=== PATIENT | male | born 1955 | race Caucasian/White ===

== ENCOUNTER → 2018-11-17 | Day surgery (SDC) | payer MEDICARE ==
--- NOTE | 2018-11-15 11:36 | Diagnostic Imaging Report ---
EXAMINATION: CHEST 2 VIEWS INDICATION: Pre-admit COMPARISON: None FINDINGS: TUBES and LINES: None. LUNGS: Lungs are well inflated. There is no evidence of pneumonia or pulmonary edema. Linear subsegmental atelectasis in the right lung base. PLEURA: No pleural effusion or pneumothorax. HEART AND MEDIASTINUM: The cardiomediastinal silhouette is unremarkable. Atherosclerotic calcifications of the aortic arch. BONES AND SOFT TISSUES: No acute osseous lesion. Soft tissues are unremarkable. UPPER ABDOMEN: No free air under the diaphragm. IMPRESSION: No acute radiographic abnormality. Signed by: Dr. Edilberto Lyman MD on 11/15/2018 11:33 AM
--- NOTE | 2018-11-15 11:40 | Diagnostic Imaging Report ---
Exam: KUB-2 views Clinical History: Pre-admit. Comparison: None. Findings: Portions of the bilateral abdomen are excluded from the mayoq-ah-pgyp. Nonobstructive bowel gas pattern. There is a 1.1 x 0.5 cm calcification overlying the right lower pole kidney. There is a cluster of calcifications measuring up to 8 mm in aggregate overlying the left lower pole kidney. No evidence of calcification overlying the expected location of the ureters. There is a 1.0 cm right pelvic calcification. No acute osseous abnormality. Impression: A 1.1 cm right lower pole renal stone. Suspected 8 mm cluster of left lower pole renal stones. A 1 cm right pelvic calcification could represent a bladder stone or phlebolith. Signed by: Dr. Edilberto Lyman MD on 11/15/2018 11:37 AM
[~2018-11-17] MED LIST: ACETAMINOPHEN 1000 MG/100 ML IV ONE; ACETAMINOPHEN/CODEINE 300MG - 30MG TAB ONE; AMLODIPINE BESY10 MG PO; ASPIR 8181 MG PO; CEFTRIAXONE SOD 1 GM/NS 50 ML 50 ML IV ONE; DEXAMETHASONE SOD PHOS INJ 4 MG/ML VIAL ONE; DOXYCYCLINE HY100 MG PO; FENTANYL CITRATE/PF 100MCG/2 ML INJ ONE; GABAPENTIN300 MG PO; GEMFIBROZIL600 MG PO; IOPAMIDOL 610MG/1ML 300 MG/ML VIAL IV ONE; LIDOCAINE HCL 2% LOCAL INJ 5 ML SDV VIAL INJ ONE; MEXILETINE HCL150 MG PO; MICARDIS40 MG PO; MIDAZOLAM HCL 2 MG/2 ML VIAL ONE; MODAFINIL200 MG PO; OMEGA 3 1,0001 EACH PO; ONDANSETRON HCL INJ 2MG/ML 2ML 2 MG/ML VIAL ONE; PAROXETINE HCL20 MG PO; PRAVASTATIN SOD40 MG PO; PROPOFOL IV EMULSION 10 MG/ML 20 ML VIAL ONE; SEVOFLURANE INHAL SOLN 250 ML PEN BTL ONE; ULORIC80 MG PO; [UNRECOGNIZED DRUG - OTHER] PO; [UNRECOGNIZED DRUG - OTHER] PO
--- OUTSIDE RECORDS SUMMARY | 2018-11-17 07:28 | XMS REPORT | Clinical Summary ---
Author Author [facility] Address Unknown Phone Unavailable Care Team Providers Care Wastewater Treatment Operator Name Role Phone Christa Todd MD PCP Allergies No Known Allergies Medications End Date Status Medication Sig Dispensed Refills Start Date Active amLODIPine (NORVASC) 10 Take 10 mg by 0 mg tablet mouth daily. 9 Active doxycycline (VIBRAMYCIN) Take 100 mg 0 100 MG capsule by mouth 9 daily. Active ULORIC 80 mg tablet Take 80 mg by 0 mouth daily. 9 Active gemfibrozil (LOPID) 600 Take 600 mg 0 MG tablet by mouth 9 daily. Active methylphenidate HCl Take 10 mg by 0 (RITALIN) 10 MG tablet mouth daily. 9 Active mexiletine (MEXITIL) 150 Take 150 mg 0 MG capsule by mouth 2 9 (two) times a day. Active omega-3 acid ethyl esters Take 2 g by 3 (LOVAZA) 1 gram capsule mouth 2 (two) 8 times a day. Active omeprazole (PriLOSEC) 40 Take 40 mg by 0 MG capsule mouth daily. 9 Active pravastatin (PRAVACHOL) Take 40 mg by 1 40 MG tablet mouth daily. 9 Active telmisartan (MICARDIS) 40 Take 40 mg by 0 MG tablet mouth daily. 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 Telephone Neurology Marianela Mercado MD 10/16/2018 Telephone Neurology Marianela Mercado MD 10/14/2018 Orders Only Neurology Marianela Mercado MD Paramyotonia congenita (Primary Dx); Idiopathic progressive neuropathy; At high risk for falls 10/13/2018 Office Visit Neurology Marianela Mercado MD 10/06/2018 Telephone Neurology Marianela Mercado MD 10/05/2018 Telephone Neurology after 11/16/2017 Family History Medical History Relation Name Comments Other Daughter Paramyotonia congentia Other Daughter Paramyotonia congentia Other Grandchild Paramyotonia congentia Breast cancer Mother Heart attack Mother Other Son Paramyotonia congentia Relation Name Status Comments Daughter Daughter Grandchild Mother Son Social History Date Tobacco Use Types Packs/Day Years Used Never Smoker Smokeless Tobacco: Never Used Alcohol Use Drinks/Week oz/Week Comments No Alcohol Habits Answer Date Recorded How often do you have a drink containing alcohol? Never 10/13/2018 How many drinks containing alcohol do you have on Not asked a typical day when you are drinking? How often do you have six or more drinks on one Not asked occasion? Sex Assigned at Date Recorded Not on file Industry Job Start Date Occupation Not on file Not on file Not on file Travel End Travel History Travel Start No recent travel history available. Last Filed Vital Signs Time Taken Vital Sign Reading 10/13/2018 1:08 PM ONCOLOGY SOCIAL WORKER Blood Pressure 142/94 10/13/2018 1:08 PM ONCOLOGY SOCIAL WORKER Pulse 102 - Temperature - - Respiratory Rate - - Oxygen Saturation - - Inhaled Oxygen - Concentration 10/13/2018 1:08 PM ONCOLOGY SOCIAL WORKER Weight 126 kg (278 lb 8 oz) 10/13/2018 1:08 PM ONCOLOGY SOCIAL WORKER Height 190.5 cm (6' 3") 10/13/2018 1:08 PM ONCOLOGY SOCIAL WORKER Body Mass Index 34.81 Plan of Treatment Care Team Description Date Type Specialty Walter Canela MD [address] [facility] [address] [place] [address] 04/06/2019 Office Visit Neurology Health Maintenance Due Date Last Done Comments COLON CANCER SCREENING 2003 SHINGLES VACCINES (#1) 2003 INFLUENZA VACCINE 04/19/2018 65+ PNEUMOCOCCAL VACCINE 2018 (1 of 2 - PCV13) PNEUMOCOCCAL 2018 POLYSACCHARIDE VACCINE AGE 65 AND OVER Procedures Comments Procedure Name Priority Date/Time Associated Diagnosis VITAMIN B12 AND FOLATE Routine 10/14/2018 8:51 AM ONCOLOGY SOCIAL WORKER THYROID STIMULATING Routine 10/14/2018 HORMONE 8:51 AM ONCOLOGY SOCIAL WORKER T4, FREE Routine 10/14/2018 8:51 AM ONCOLOGY SOCIAL WORKER SSA/SSB ANTIBODY Routine 10/14/2018 8:51 AM ONCOLOGY SOCIAL WORKER KKAPPA/LAMBDA LIGHT Routine 10/14/2018 CHAINS, FREE WITH RATIO 8:51 AM ONCOLOGY SOCIAL WORKER AND REFLEX TO IMMUNOFIXAT CRYOGLOBULIN SCREEN WITH Routine 10/14/2018 REFLEX TO CRYOGLOBULIN 8:51 AM ONCOLOGY SOCIAL WORKER PROFILE METHYLMALONIC ACID, SERUM Routine 10/14/2018 8:51 AM ONCOLOGY SOCIAL WORKER INTERPRETATION (REFLEX Routine 10/14/2018 [facility]) 8:51 AM ONCOLOGY SOCIAL WORKER RQEZ RNA POLYMERASE III Routine 10/14/2018 (NOT ORDERABLE) 8:51 AM ONCOLOGY SOCIAL WORKER CENTROMERE B ANTIBODY Routine 10/14/2018 (NOT ORDERABLE) 8:51 AM ONCOLOGY SOCIAL WORKER SCL-70 ANTIBODY Routine 10/14/2018 8:51 AM ONCOLOGY SOCIAL WORKER ANTINUCLEAR ANTIBODIES Routine 10/14/2018 TITER AND PATTERN 8:51 AM ONCOLOGY SOCIAL WORKER HUSSEIN SCREEN, IFA (NOT Routine 10/14/2018 ORDERABLE) 8:51 AM ONCOLOGY SOCIAL WORKER SERUM ELECTROPHORESIS Routine 10/14/2018 8:51 AM ONCOLOGY SOCIAL WORKER after 11/16/2017 Results * RQEZ RNA POLYMERASE III (NOT ORDERABLE) (10/14/2018 8:51 AM ONCOLOGY SOCIAL WORKER) RNA polymerase III TNP Units [facility] Comment: DIAGNOSTICS/CHEN Test Not Performed. Reflex SJC testing not required. Narrative Performed At FASTING:NO [facility] FASTING: NO Resulting Agency Comment Performing Organization Information: Site ID: [id number] Name: [facility], Address: [address] [place] [phone] Director: Nicole Richmond MD,PhD,PILLO Performing Organization Address [facility] Phone Number [facility] [employer] [phone] [place] [address] [facility] [phone] * Cryoglobulin Screen with Reflex to Cryoglobulin Profile (10/14/2018 8:51 AM ONCOLOGY SOCIAL WORKER) Cryoglobulin NEGATIVE [facility] Comment: Michael Bieker/[employer] [facility] Reference Range: NEGATIVE IN NORMAL INDIVIDUAL S This test was developed and its analytical performance characteristics have been determined by [facility]. It has not been cleared or approved by FDA. This assay has been validated pursuant to the CLIA regulations and is used for clinical purposes. Narrative Performed At FASTING:NO [facility] FASTING: NO Resulting Agency Comment Performing Organization Information: Site ID: [id number] Name: [facility], Address: [address] [place] [phone] Director: Nicole Richmond MD,PhD,PILLO Performing Organization Address [facility] Phone Number [facility]/CHEN [phone] [place] [address] [facility] [id number] * INTERPRETATION (REFLEX [facility]) (10/14/2018 8:51 AM ONCOLOGY SOCIAL WORKER) Interpretation SEE NOTE [facility] Comment: Michael Bieker[facility] HUSSEIN by IFA on HEp-2 cell [facility] substrate was negative for nuclear and cytoplasmic autoantibodies. About 5% or more of systemic sclerosis patients have a negative HUSSEIN IFA (Brian and Eleazarille. Arthritis Res Ther 2003;5:80-93; Orozco et al. Kaykay Arthritis Rheum 2015;44:680-686). If clinical suspicion for systemic sclerosis and/or systemic sclerosis overlap syndromes remains, consider testing for analyte specific autoantibodies known to be associated with systemic sclerosis and/or interstitial lung disease, for example, PM-Gbj393, PM-Scl75, CENP A, CENP B, RNA Polymerase III subunit RP11, RNA Polymerase III subunit RP155, U1-snRNP SENIOR ART DIRECTOR A, U1-snRNP SENIOR ART DIRECTOR C, U1-snRNP SENIOR ART DIRECTOR 70kd, U3-snRNP (fibrillarin), Th/To, and/or Scl-70 antibodies. Narrative Performed At FASTING:NO [facility] FASTING: NO Resulting Agency Comment Performing Organization Information: Site ID: EZ Name: [facility], Address: [address] [place] [phone] Director: Nicole Richmond MD,PhD,PILLO Performing Organization Address [facility] Phone Number [facility]NOSTICS/CHEN [address] [place] [address] [facility] [phone] * CENTROMERE B ANTIBODY (10/14/2018 8:51 AM ONCOLOGY SOCIAL WORKER) Centromere antibody TNP AI [facility] Comment: DIAGNOSTICS/CHEN Test Not Performed. Reflex SJC testing not required. Narrative Performed At FASTING:NO [facility] FASTING: NO Resulting Agency Comment Performing Organization Information: Site ID: EZ Name: [facility], Address: [address] [place] [phone] Director: Nicole Richmond MD,PhD,PILLO Performing Organization Address [facility] Phone Number [facility]/CHEN [address] [place] [address] [facility] [address] * Scl-70 antibody (10/14/2018 8:51 AM ONCOLOGY SOCIAL WORKER) Scleroderma SCL-70 Ab TNP AI [facility] Comment: DIAGNOSTICS/CHEN Test Not Performed. Reflex SJC testing not required. Narrative Performed At FASTING:NO [facility] FASTING: NO Resulting Agency Comment Performing Organization Information: Site ID: EZ Name: [facility], Address: [address] [place] [phone] Director: Nicole Richmond MD,PhD,PILLO Performing Organization Address [facility] Phone Number [facility]/CHEN [address] [place] [address] [facility] [address] * HUSSEIN SCREEN, IFA (10/14/2018 8:51 AM ONCOLOGY SOCIAL WORKER) HUSSEIN screen NEGATIVE NEGATIVE [employer] Comment: Conductor HUSSEIN IFA is a first line screen [facility] for detecting the presence of up to approximately 150 autoantibodies in various autoimmune diseases. A negative HUSSEIN IFA result suggests HUSSEIN-associated autoimmune diseases are not present at this time. Visit Physician FAQs for interpretation of all antibodies in the [place], prevalence, and association with diseases at http://education.WeHack.It/faq/HLP581 Narrative Performed At FASTING:NO [facility] FASTING: NO Resulting Agency Comment Performing Organization Information: Site ID: EZ Name: [facility], Address: [address] [place] [phone] Director: Nicole Richmond MD,PhD,PILLO Performing Organization Address City/State/Zipcode Phone Number [facility] [address] [place] [address] [facility] [address] * Momeyer/Lambda Light Chains, Free with Ratio and Reflex to Immunofixation (10/14/2018 8:51 AM ONCOLOGY SOCIAL WORKER) Momeyer light chain 26.2 (H) 3.3 - 19.4 mg/L [facility] II Lambda light chain 21.3 5.7 - 26.3 mg/L [facility] II Momeyer lambda ratio 1.23 0.26 - 1.65 [facility] Comment: DIAGNOSTICS-[facility] Free kappa/lambda ratio in II serum of normal individuals is 0.26-1.65. Excess production of free kappa or lambda chains can alter this ratio. Monoclonal free light chains are found in serum of patients with multiple myeloma, Waldenstrom's macroglobulinemia, mu-heavy chain disease, primary amyloidosis, light chain deposition disease, monoclonal gammopathy of undetermined significance, and lymphoproliferative disorders. Measurement of free light chain concentration in serum is useful for diagnosis, prognosis, monitoring disease activity and following response to therapy of these disorders. Narrative Performed At FASTING:NO [facility] FASTING: NO Resulting Agency Comment Performing Organization Information: Site ID: [id number] Name: [facility] Address: [address] [place] [phone] Director: Dr. Walter Gorman Performing Organization Address [facility] Centercode Phone Number [facility] [address] [place] [address] II * Vitamin B12 and Folate (10/14/2018 8:51 AM ONCOLOGY SOCIAL WORKER) Vitamin B12 598 200 - 1,100 pg/mL [employer] [facility] Folate 14.2 ng/mL [employer] Comment: [facility] Reference Range Low: <3.4 Borderline:3.4-5.4 Normal:>5.4 Narrative Performed At FASTING:NO [facility] FASTING: NO Resulting Agency Comment Performing Organization Information: Site ID: RGA Name: [facility] Address: [address] [place] [id number] Director: More Del Cid Performing Organization Address [facility] Phone Number [facility] [address] [place] [address] * ANTINUCLEAR ANTIBODIES TITER AND PATTERN (10/14/2018 8:51 AM ONCOLOGY SOCIAL WORKER) HUSSEIN pattern TNP [facility] Comment: DIAGNOSTICS/CHEN Test Not Performed. Reflex SJC testing not required. Reference Ranges for Anti-Nuclear Ab Titer: <1:40Negative 1:40-1:80Low Antibody Level >1:80Elevated Antibody Level Test Not Performed. Reflex testing not required. Narrative Performed At FASTING:NO [facility] FASTING: NO Resulting Agency Comment Performing Organization Information: Site ID: EZ Name: [facility], Address: [address] [place] [phone] Director: Nicole Richmond MD,PhD,PILLO Performing Organization Address [facility] Centercode Phone Number [facility]/CHEN [address] [place] [address] [facility] [address] * SSA/SSB antibody (10/14/2018 8:51 AM ONCOLOGY SOCIAL WORKER) Sjogren's SS-A antibody <1.0 NEG <1.0 NEG AI [employer] II Sjogren's SS-B antibody <1.0 NEG <1.0 NEG AI [employer] [facility] II Narrative Performed At FASTING:NO [facility] FASTING: NO Resulting Agency Comment Performing Organization Information: Site ID: IG Name: [facility] Address: [address] [place] [address] Director: Dr. Walter Gorman Performing Organization Address City/[facility] Cent[facility] Phone Number [facility] [address] [facility] [place] [address] II * Methylmalonic acid, serum (10/14/2018 8:51 AM ONCOLOGY SOCIAL WORKER) Methylmalonic acid 108 87 - 318 nmol/L [facility] Comment: Michael Bieker/[employer] This test was developed and [facility] its analytical performance characteristics have been determined by [facility]. It has not been cleared or approved by FDA. This assay has been validated pursuant to the CLIA regulations and is used for clinical purposes. Narrative Performed At FASTING:NO [facility] FASTING: NO Resulting Agency Comment Performing Organization Information: Site ID: EZ Name: [facility], Address: [address] [place] [phone] Director: Nicole Richmond MD,PhD,PILLO Performing Organization Address [facility] Phone Number [facility] [address] [place] [address] [facility] [address] * Thyroid stimulating hormone (10/14/2018 8:51 AM ONCOLOGY SOCIAL WORKER) TSH 3.61 0.40 - 4.50 mIU/L [employer] [facility] Narrative Performed At FASTING:NO [facility] FASTING: NO Resulting Agency Comment Performing Organization Information: Site ID: RGA Name: [facility] Address: [address] [place] [phone] Director: More Del Cid Performing Organization Address [facility] Phone Number [facility] [address] [address] * T4, free (10/14/2018 8:51 AM ONCOLOGY SOCIAL WORKER) T4, free 1.4 0.8 - 1.8 ng/dL [employer] [facility] Narrative Performed At FASTING:NO [facility] FASTING: NO Resulting Agency Comment Performing Organization Information: Site ID: RGA Name: [facility] Address: [address] [place] [address] Director: More Del Cid Performing Organization Address City/[facility] Centercode Phone Number [facility] [address] [place] [address] * Serum electrophoresis (10/14/2018 8:51 AM ONCOLOGY SOCIAL WORKER) Protein 7.2 6.1 - 8.1 g/dL [facility] II Albumin, S 4.7 3.8 - 4.8 g/dL [facility] II Qhing-6-ospyvvie 0.3 0.2 - 0.3 g/dL [facility] II Eflxo-1-fknzdqcg 0.6 0.5 - 0.9 g/dL [facility] II Beta-1 globulin 0.4 0.4 - 0.6 g/dL [facility] II Beta-2 globulin 0.3 0.2 - 0.5 g/dL [facility] II Gamma, CSF 0.9 0.8 - 1.7 g/dL [facility] II Interpretation Comment: [facility] Normal Electrophoretic Pattern DIAGNOSTICS-[facility] II Narrative Performed At FASTING:NO [facility] FASTING: NO Resulting Agency Comment Performing Organization Information: Site ID: [id number] Name: [facility] Address: [address] [place] [address] Director: Dr. Walter Gorman Performing Organization Address City/[facility] Centercode Phone Number [facility] [address] [place] [address] II after 11/16/2017 Insurance Payer Benefit Subscriber ID Type Phone Address Plan / Group [facility] xxxxxxxx [facility] Advance Directives Patient has advance care planning documents on file. For more information, maría elena wilson contact: rAmen Valencia [address] [place] [address]
--- OUTSIDE RECORDS SUMMARY | 2018-11-17 07:28 | XMS REPORT ---
Author Author [facility] Address Unknown Phone Unavailable Care Team Providers Care Waiter/Waitress Tourist Class Name Role Phone HINA ELAM Unavailable Unavailable Problems This patient has no known problems. Allergies, Adverse Reactions, Alerts This patient has no known allergies or adverse reactions. Medications This patient has no known medications. Results Test Description Test Time Test Comments Text Results Atomic Results Result Comments ABDOMEN-1VIEW (KUB) 2018-11-15 11:33:00 [place] [address] Patient Name: CONG MICHAEL MR #: [id number] : 1955 Age/Sex: 63/M Req #: [id number] Adm Physician: Ordered by: HINA ELAM MD Report #: [id number] Location: OR Room/Bed: Procedure: [id number] DX/ABDOMEN-1VIEW (KUB) Exam Date: Exam Time: REPORT STATUS: Signed Exam: KUB-2 views Clinical History: Pre-admit. Comparison: None. Findings: Portions of the bilateral abdomen are excluded from the beugg-zk-vntf. Nonobstructive bowel gas pattern. There is a 1.1 x 0.5 cm calcification overlying the right lower pole kidney. There is a cluster of calcifications measuring up to 8 mm in aggregate overlying the left lower pole kidney. No evidence of calcification overlying the expected location of the ureters. There is a 1.0 cm right pelvic calcification. No acute osseous abnormality. Impression: A 1.1 cm right lower pole renal stone. Suspected 8 mm cluster of left lower pole renal stones. A 1 cm right pelvic calcification could represent a bladder stone or phlebolith. Signed by: Dr. Gurmeet Hickey MD on 11/15/2018 11:37 AM Dictated By: GURMEET HICKEY MD [id number] Transcribed By: LISA on 11/15/18 1137 COPY TO: HINA ELAM MD CHEST 2 VIEWS 2018-11-15 11:31:00 [place] [address] Patient Name: CONG MICHAEL MR #: [id number] : 1955 Age/Sex: 63/M Req #: [id number] Adm Physician: Ordered by: HINA ELAM MD Report #: [id number] Location: OR Room/Bed: Procedure: [id number] DX/CHEST 2 VIEWS Exam Date: Exam Time: REPORT STATUS: Signed EXAMINATION: CHEST 2 VIEWS INDICATION: Pre-admit COMPARISON: None FINDINGS: TUBES and LINES: None. LUNGS: Lungs are well inflated. There is no evidence of pneumonia or pulmonary edema. Linear subsegmental atelectasis in the right lung base. PLEURA: No pleural effusion or pneumothorax. HEART AND MEDIASTINUM: The cardiomediastinal silhouette is unremarkable. Atherosclerotic calcifications of the aortic arch. BONES AND SOFT TISSUES: No acute osseous lesion. Soft tissues are unremarkable. UPPER ABDOMEN: No free air under the diaphragm. IMPRESSION: No acute radiographic abnormality. Signed by: Dr. Gurmeet Hickey MD on 11/15/2018 11:33 AM Dictated By: GURMEET HICKEY MD [id number] Transcribed By: LISA on 11/15/18 1133 COPY TO: HINA ELAM MD
[2018-11-17 11:45] VITALS: BP 123/63
--- NOTE | 2018-11-17 18:59 | Operative Report ---
DATE OF PROCEDURE: 11/17/2018 SURGEON: Cuong Braden MD PREOPERATIVE DIAGNOSES: 1. Right distal ureteral calculus. 2. Right hydronephrosis. POSTOPERATIVE DIAGNOSES: 1. Right distal ureteral calculus. 2. Right hydronephrosis. PROCEDURES: 1. Right ureteroscopy with laser and stent insertion for ureteral calculus. 2. Supervision of fluoroscopy. ANESTHESIA: General. ESTIMATED BLOOD LOSS: Minimal. COMPLICATIONS: None. INDICATIONS: Mr. Milligan is a very pleasant 58-exsv-lbs-male with a history of myotonia and found to have right 8 mm distal ureteral calculus, renal insufficiency, and 1.6 cm right renal calculus and the 9 mm left renal calculus. I had a long discussion with the alternatives, the risks and the benefits with the renal insufficiency. We will first address the ureteral calculi, then present with staged bilateral lithotripsies. This case is extremely completed secondary to the myotonia and inability to give muscle relaxants. We will proceed as we agreed. PROCEDURE IN DETAIL: After informed consent was obtained, the patient was taken to the operative suite. He was placed supine on the operating table. He underwent general anesthesia by the service. He was placed in dorsal lithotomy position. Sterilely prepped and draped in standard fashion for cystoscopy. A 22.5-Swedish cystoscope was inserted per urethra and normal urethra was noted. Ureters were catheterized. Retrograde pyelogram was performed revealing a distal ureteral calculus on the right. Guidewire was inserted proximally. The uteroscope was advanced to level of stone utilizing 365 micron laser fiber. Stone was obliterated. Ureteral stent was placed with coil in the renal pelvis and a coil in the patient's bladder. Bladder was drained. The patient was awakened from anesthesia and transported to the recovery room in excellent condition. Supervision of fluoroscopy, interpretation, retrograde pyelography: I was present for the entire procedure. I supervised the use of fluoroscopy. There was no radiologist present. The right ureter was catheterized and right retrograde pyelogram was performed revealing an 8 x 9 mm distal ureteral calculus of proximal hydronephrosis Post operatively stent in good position. Cuong Braden MD ES/MODL /[id number] MTDD
== END | disposition home or self-care (01) ==
LOC: OR 07:25
PROVIDERS: ATTEND Urology
DX: N20.1 Calculus of ureter (principal); N20.0 Calculus of kidney; N13.30 Unspecified hydronephrosis; M62.89 Other specified disorders of muscle; N28.9 Disorder of kidney and ureter, unspecified; N39.0 Urinary tract infection, site not specified; N28.1 Cyst of kidney, acquired; I10 Essential (primary) hypertension; R06.09 Other forms of dyspnea; Z01.818 Encounter for other preprocedural examination; Z79.82 Long term (current) use of aspirin; Z68.35 Body mass index [BMI] 35.0-35.9, adult
CPT/HCPCS: 52356; 71046; 74018; 74420; C1758; C2617; J0131; J0696; J1100; J2001; J2250; J2405; J2704; Q9967

== ENCOUNTER → 2018-12-06 | Day surgery (SDC) | payer OTHER ==
[~2018-12-06] MED LIST changes: -ACETAMINOPHEN 1000 MG/100 ML IV ONE; -ACETAMINOPHEN/CODEINE 300MG - 30MG TAB ONE
--- OUTSIDE RECORDS SUMMARY | 2018-12-06 06:10 | XMS REPORT | Clinical Summary ---
Author Author [facility] Address Unknown Phone Unavailable Care Team Providers Care Increment Manager Name Role Phone Christa Todd MD PCP [...] Marianela Mercado MD 10/05/2018 Telephone Neurology after 12/05/2017 Family History Medical History Relation Name Comments [...] Taken Vital Sign Reading 10/13/2018 1:08 PM T[facility] Blood Pressure 142/94 10/13/2018 1:08 PM T[facility] Pulse 102 - Temperature - - Respiratory Rate - - Oxygen Saturation - - Inhaled Oxygen - Concentration 10/13/2018 1:08 PM T[facility] Weight 126 kg (278 lb 8 oz) 10/13/2018 1:08 PM T[facility] Height 190.5 cm (6' 3") 10/13/2018 1:08 PM TUR[facility]OWER Body Mass Index 34.81 Plan of Treatment Care Team Description Date Type Specialty Walter Canela MD [address] [facility] [address] [place] [address] 04/06/2019 Office Visit Neurology Health Maintenance Due Date Last Done Comments COLON CANCER SCREENING 2003 SHINGLES VACCINES (#1) 2003 INFLUENZA VACCINE 04/19/2018 65+ PNEUMOCOCCAL VACCINE 2018 (1 of 2 - PCV13) PNEUMOCOCCAL 2018 POLYSACCHARIDE VACCINE AGE 65 AND OVER Procedures Comments Procedure Name Priority Date/Time Associated Diagnosis VITAMIN B12 AND FOLATE Routine 10/14/2018 8:51 AM [facility] THYROID STIMULATING Routine 10/14/2018 HORMONE 8:51 AM [facility] T4, FREE Routine 10/14/2018 8:51 AM [facility] SSA/SSB ANTIBODY Routine 10/14/2018 8:51 AM T[facility]OWER KKAPPA/LAMBDA LIGHT Routine 10/14/2018 CHAINS, FREE WITH RATIO 8:51 AM T[facility] AND REFLEX TO IMMUNOFIXAT CRYOGLOBULIN SCREEN WITH Routine 10/14/2018 REFLEX TO CRYOGLOBULIN 8:51 AM [facility] PROFILE METHYLMALONIC ACID, SERUM Routine 10/14/2018 8:51 AM [facility] INTERPRETATION (REFLEX Routine 10/14/2018 [facility]) 8:51 AM [facility] RQEZ RNA POLYMERASE III Routine 10/14/2018 (NOT ORDERABLE) 8:51 AM T[facility] CENTROMERE B ANTIBODY Routine 10/14/2018 (NOT ORDERABLE) 8:51 AM [facility] SCL-70 ANTIBODY Routine 10/14/2018 8:51 AM [facility] ANTINUCLEAR ANTIBODIES Routine 10/14/2018 TITER AND PATTERN 8:51 AM [facility] HUSSEIN SCREEN, IFA (NOT Routine 10/14/2018 ORDERABLE) 8:51 AM [facility] SERUM ELECTROPHORESIS Routine 10/14/2018 8:51 AM T[facility] after 12/05/2017 Results * RQEZ RNA POLYMERASE III (NOT ORDERABLE) (10/14/2018 8:51 AM T[facility]) RNA polymerase III TNP Units [facility] Comment: DIAGNOSTICS/CHEN Test Not Performed. Reflex SJC testing not required. Narrative Performed At FASTING:NO [facility] FASTING: NO Resulting Agency Comment Performing Organization Information: Site ID: [id number] Name: [employer] [facility], Address: [address] [place] [phone] Director: Nicole Richmond MD,PhD,PILLO Performing Organization Address [facility] Phone Number [facility] [email or web address] [id number] [place] [address] [facility] [address] * Cryoglobulin Screen with Reflex to Cryoglobulin Profile (10/14/2018 8:51 AM TURF GROWER) Cryoglobulin NEGATIVE [facility] Comment: [email or web address] [facility] Reference Range: NEGATIVE IN NORMAL INDIVIDUAL S This test was developed and its analytical performance characteristics have been determined by [employer] [facility]. It has not been cleared or approved by FDA. This assay has been validated pursuant to the CLIA regulations and is used for clinical purposes. Narrative Performed At FASTING:NO [facility] FASTING: NO Resulting Agency Comment Performing Organization Information: Site ID: [id number] Name: [employer] [facility], Address: [address] [place] [id number] Director: Nicole Richmond MD,PhD,PILLO Performing Organization Address [facility] Phone Number [employer]CHEN [id number] [place] [address] [facility] [address] * INTERPRETATION (REFLEX [facility]) (10/14/2018 8:51 AM TURF GROWER) Interpretation SEE NOTE [facility] Comment: [email or web address] HUSSEIN by IFA on HEp-2 cell [facility] substrate was negative for nuclear and cytoplasmic [...] sclerosis and/or interstitial lung disease, for example, PM-Icl411, PM-Scl75, CENP A, CENP B, RNA Polymerase III subunit RP11, RNA Polymerase III subunit RP155, U1-snRNP SALES DEVELOPMENT DIRECTOR A, U1-snRNP SALES DEVELOPMENT DIRECTOR C, U1-snRNP SALES DEVELOPMENT DIRECTOR 70kd, U3-snRNP (fibrillarin), Th/To, and/or Scl-70 antibodies. Narrative Performed At FASTING:NO [facility] FASTING: NO Resulting Agency Comment Performing Organization Information: Site ID: [id number] Name: [employer] [facility], Address: [address] [place] [phone] Director: Nicole Richmond MD,PhD,PILLO Performing Organization Address [facility] [address]/[facility] Phone Number [employer] [facility]/CHEN [address] [place] [address] [facility] [address] * CENTROMERE B ANTIBODY (10/14/2018 8:51 AM TURF [facility]OWER) Centromere antibody TNP AI [facility] Comment: DIAGNOSTICS/CHEN Test Not Performed. Reflex SJC testing not required. Narrative Performed At FASTING:NO [facility] FASTING: NO Resulting Agency Comment Performing Organization Information: Site ID: [id number] Name: [employer] [facility], Address: [address] [place] [phone] Director: Nicole Richmond MD,PhD,PILLO Performing Organization Address [facility] Phone Number [employer] [facility]CHEN [address] [place] [address] [facility] [address] * Scl-70 antibody (10/14/2018 8:51 AM T[facility]) Scleroderma SCL-70 Ab TNP AI [facility] Comment: DIAGNOSTICS/CHEN Test Not Performed. Reflex SJC testing not required. Narrative Performed At FASTING:NO [facility] FASTING: NO Resulting Agency Comment Performing Organization Information: Site ID: EZ Name: [employer] [facility], Address: [address] [place] [address] Director: Nicole Richmond MD,PhD,PILLO Performing Organization Address [facility] [address]/[facility] Phone Number [employer] [address] [place] [address] [facility] [address] * HUSSEIN SCREEN, IFA (10/14/2018 8:51 AM T[facility]) HUSSEIN screen NEGATIVE NEGATIVE [employer] Comment: Vehrity HUSSEIN IFA is a first line screen [facility] for detecting the presence of up to approximately 150 autoantibodies in various autoimmune diseases. A negative HUSSEIN IFA result suggests HUSSEIN-associated autoimmune diseases are not present at this time. Visit Physician FAQs for interpretation of all antibodies in the [place], prevalence, and association with diseases at http://education.[place] [employer]/faq/QSQ669 Narrative Performed At FASTING:NO [facility] FASTING: NO Resulting Agency Comment Performing Organization Information: Site ID: [id number] Name: [employer] [facility], Address: [address] [place] [phone] Director: Nicole Richmond MD,PhD,PILLO Performing Organization Address City/State/Zipcode Phone Number [email or web address] [address] [place] [address] [facility] [address] * [place]/Lambda Light Chains, Free with Ratio and Reflex to Immunofixation (10/14/2018 8:51 AM TUR[facility]OWER) [place] light chain 26.2 (H) 3.3 - 19.4 mg/L [facility] II Lambda light chain 21.3 5.7 - 26.3 mg/L [facility] II [place] lambda ratio 1.23 0.26 - 1.65 [facility] [...] Performing Organization Information: Site ID: IG Name: [facility] Address: [address] [place] [phone] Director: Dr. Walter Gorman Performing Organization Address [facility] [address]/[facility] Phone Number [facility] [address] [place] [address] II * Vitamin B12 and Folate (10/14/2018 8:51 AM TURF [facility]OWER) Vitamin B12 598 200 - 1,100 pg/mL [employer] [facility] Folate 14.2 ng/mL [facility] Comment: [facility] Reference Range Low: <3.4 Borderline:3.4-5.4 Normal:>5.4 Narrative Performed At FASTING:NO [facility] FASTING: NO Resulting Agency Comment Performing Organization Information: Site ID: RGA Name: [facility] Address: [address] [place] [address] Director: More Del Cid Performing Organization Address [facility] Phone Number [employer] [place] [address] [place] [address] * ANTINUCLEAR ANTIBODIES TITER AND PATTERN (10/14/2018 8:51 AM TUR[facility]OWER) HUSSEIN pattern TNP [facility] Comment: DIAGNOSTICS/CHEN Test Not Performed. Reflex SJC testing not required. Reference Ranges for Anti-Nuclear Ab Titer: <1:40Negative 1:40-1:80Low Antibody Level >1:80Elevated Antibody Level Test Not Performed. Reflex testing not required. Narrative Performed At FASTING:NO [facility] FASTING: NO Resulting Agency Comment Performing Organization Information: Site ID: EZ Name: [employer] [facility], Address: [address] [place] [phone] Director: Nicole Richmond MD,PhD,PILLO Performing Organization Address [facility] [address]/[facility] Phone Number [employer] [address] [place] [address] [facility] [address] * SSA/SSB antibody (10/14/2018 8:51 AM TUR[facility]OWER) Sjogren's SS-A antibody <1.0 NEG <1.0 NEG AI [employer] II Sjogren's SS-B antibody <1.0 NEG <1.0 NEG AI [facility] II Narrative Performed At FASTING:NO [facility] FASTING: NO Resulting Agency Comment Performing Organization Information: Site ID: IG Name: [facility] Address: [address] [facility] [place] [address] Director: Dr. Walter Gorman Performing Organization Address City/[facility] [address]/[facility] Phone Number [employer] [facility]OS[facility]ITAL[facility] [address] [place] [address] II * Methylmalonic acid, serum (10/14/2018 8:51 AM TURF [facility]OWER) Methylmalonic acid 108 87 - 318 nmol/L [facility] Comment: [email or web address] This test was developed and [facility] its analytical performance characteristics have been determined by [employer] [facility]. It has not been cleared or approved by FDA. This assay has been validated pursuant to the CLIA regulations and is used for clinical purposes. Narrative Performed At FASTING:NO [facility] FASTING: NO Resulting Agency Comment Performing Organization Information: Site ID: EZ Name: [employer] [facility], Address: [address] [place] [phone] Director: Nicole Richmond MD,PhD,PILLO Performing Organization Address [facility] [address]/[facility] Phone Number [email or web address] [address] [place] [address] [facility] [address] * Thyroid stimulating hormone (10/14/2018 8:51 AM TURF [facility]OWER) TSH 3.61 0.40 - 4.50 mIU/L [facility] [place] Narrative Performed At FASTING:NO [facility] FASTING: NO Resulting Agency Comment Performing Organization Information: Site ID: RGA Name: [facility] Address: [address] [place] [phone] Director: More Del Cid Performing Organization Address [facility] [address]/[facility] Phone Number [employer] [address] [address] * T4, free (10/14/2018 8:51 AM TURF GROWER) T4, free 1.4 0.8 - 1.8 ng/dL [facility] Narrative Performed At FASTING:NO [facility] FASTING: NO Resulting Agency Comment Performing Organization Information: Site ID: RGA Name: [facility] Address: [address] [place] [address] Director: More Del Cid Performing Organization Address City/[facility] [address]/[facility] Phone Number [employer] [place] [address] [place] [address] * Serum electrophoresis (10/14/2018 8:51 AM TURF [facility]OWER) Protein 7.2 6.1 - 8.1 g/dL [facility] Albumin, S 4.7 3.8 - 4.8 g/dL [facility] Smrvn-4-tazkadnr 0.3 0.2 - 0.3 g/dL [facility] Tblxp-1-nowvzzwi 0.6 0.5 - 0.9 g/dL [facility] Beta-1 globulin 0.4 0.4 - 0.6 g/dL [facility] Beta-2 globulin 0.3 0.2 - 0.5 g/dL [facility] Gamma, CSF 0.9 0.8 - 1.7 g/dL [facility] II Interpretation Comment: [facility] Normal Electrophoretic Pattern DIAGNOSTICS-J[facility] II Narrative Performed At FASTING:NO [facility] FASTING: NO Resulting Agency Comment Performing Organization Information: Site ID: IG Name: [facility] Address: [address] [place] [address] Director: Dr. Walter Gorman Performing Organization Address City/[facility] [address]/[facility]code Phone Number [facility] [address] [place] [address] II after 12/05/2017 Insurance Payer Benefit Subscriber ID Type Phone Address Plan / Group [facility] xxxxxxxx O [facility] Advance Directives Patient has advance care planning documents on file. For more information, maría elena wilson contact: Armen Valencia [address] [place] [address]
--- NOTE | 2018-12-06 07:10 | NUR ---
SPIRITUAL CARE - Pre-Surgery Assessment: Pt in bed. Pt's at bedside. Pt reported supportive attention from family and friends. Intervention: I provided pastoral presence, hospitality, and sympathetic listening. I acquainted pt with availability of banjo repairer while hospitalized. Outcome: Pt expressed appreciation for visit. No need for follow up indicated at this time. JUAN Padillalain Spiritual Care Department O: [phone] Pager: [phone] ([phone] number calling from)
[2018-12-06 09:30] VITALS: BP 131/77
--- NOTE | 2018-12-06 11:27 | Operative Report ---
DATE OF PROCEDURE: 12/06/2018 SURGEON: Cuong Braden MD PREOPERATIVE DIAGNOSES: 1. Right kidney stone. 2. Right ureteral stent. 3. Right hydronephrosis. POSTOPERATIVE DIAGNOSES: 1. Right kidney stone. 2. Right ureteral stent. 3. Right hydronephrosis. PROCEDURES: 1. Cystourethroscopy with complicated removal of right indwelling stent (entirely separate procedure) complicated secondary to BPH. 2. Cystourethroscopy with insertion of a right indwelling stent (entirely separate procedure) for right hydronephrosis. 3. Staged right-sided shock wave lithotripsy. 4. Supervision of fluoroscopy. ANESTHESIA: General. ESTIMATED BLOOD LOSS: Minimal. COMPLICATION: None. INDICATIONS: Mr. Milligan is a very pleasant 63-year-old male patient with a history of myotonia, who presents with bilateral large obstructing stones and indwelling stent. He and I had a long discussion about alternatives, risks and benefits of doing nothing, shock wave lithotripsy, ureteroscopy, percutaneous surgery or open surgery. He voiced understanding of the options, the alternatives, the risks and benefits and would like to proceed with stent exchange and right shock wave lithotripsy. PROCEDURE IN DETAIL: After informed consent was obtained, the patient was taken to the operative suite. He was placed supine on the operative table, underwent general anesthesia by the Anesthesia service, placed in dorsal lithotomy position, and sterilely prepped and draped in a standard fashion for cystoscopy. A 22.5-Anguillan cystoscope inserted per urethra. Normal urethra was noted. Stent in right ureteral orifice, this was grasped and removed intact. A guidewire was inserted. Ureteral stent was deployed with coil in the renal pelvis and coil in the bladder. A string was tied at the level of meatus. Bladder was then drained. The patient was placed in supine position. All pressure points were carefully padded and prepped. Attention was turned to the right renal pelvis and the stone was localized in the X, Y and Z planes. A total of 3000 shocks were delivered to the stone The patient tolerated the procedure well, was transferred to recovery room in excellent condition with no untoward effects noted. Supervision of fluoroscopy: I was present for the entire procedure and I supervised fluoroscopy for both the stent removal and exchange portion. There was no radiologist present. Dosage per the treatment report. MD ANGEL Chakraborty/SIMBA /[id number] MTDD
== END | disposition home or self-care (01) ==
LOC: OR 06:07
PROVIDERS: ATTEND Urology
DX: N13.2 Hydronephrosis with renal and ureteral calculous obstruction (principal); N28.1 Cyst of kidney, acquired; N40.1 Benign prostatic hyperplasia with lower urinary tract symptoms; M62.89 Other specified disorders of muscle; Z79.82 Long term (current) use of aspirin
CPT/HCPCS: 50590; 52332; C1758; C2617; J0696; J1100; J2001; J2250; J2405; J2704; Q9967

== ENCOUNTER → 2019-01-02 | Day surgery (SDC) | payer OTHER ==
[2019-01-01 11:04] LABS: BASOPHILS # (AUTO) 0.1 (0.0-0.1); EOSINOPHILS # (AUTO) 0.3 (0.0-0.4); EOSINOPHILS % 4.2 % (0.0-6.0); HEMATOCRIT 40.9 % (38.2-49.6); HEMOGLOBIN 13.9 g/dL (14.0-18.0); LYMPHOCYTES # (AUTO) 1.5 (1.0-3.2); LYMPHOCYTES % 24.4 % (18.0-39.1); MEAN CORPUSCULAR HEMOGLOBIN 29.4 pg (28-32); MEAN CORPUSCULAR VOLUME 86.5 fL (81-99); MONOCYTES # (AUTO) 0.5 (0.2-0.8); MONOCYTES % 7.6 % (4.4-11.3); NEUTROPHILS # (AUTO) 3.7 (2.1-6.9); NEUTROPHILS % 62.5 % (38.7-80.0); PLATELET COUNT 267 x10e3/uL (140-360); RED BLOOD COUNT 4.73 x10e6/uL (4.3-5.7); RED CELL DISTRIBUTION WIDTH 12.2 % (11.7-14.4)
--- NOTE | 2019-01-01 13:15 | Diagnostic Imaging Report ---
EXAM: ABDOMEN-1VIEW ([facility]) DATE: 01/01/2019 10:43 AM INDICATION: Left kidney stone COMPARISON: [facility], 11/15/2018 FINDINGS: Normal distribution of air in the small and large bowel. 5 mm calculus is seen at the lower pole left kidney. Adjacent smaller calculi are likely present. Previously noted calculus at the lower pole right kidney is no longer seen. Previously noted calcification near the right UVJ is no longer seen. No acute bony abnormality. Degenerative changes are seen in the spine and hips. IMPRESSION: 1. 5 mm left lower pole renal calculus, with adjacent small calculus fragments. 2. Previously noted right renal calculus and calcification near the right UVJ are no longer seen. Signed by: Dr. Sandeep Mota M.D. on 01/01/2019 1:11 PM
[~2019-01-02] MED LIST changes: -IOPAMIDOL 610MG/1ML 300 MG/ML VIAL IV ONE
--- OUTSIDE RECORDS SUMMARY | 2019-01-02 05:16 | XMS REPORT | Clinical Summary ---
Author Author [facility] Address Unknown Phone Unavailable Care Team Providers Care Snorkelling Instructor Name Role Phone Christa Todd MD PCP [...] Marianela Mercado MD 10/05/2018 Telephone Neurology after 01/01/2018 Family History Medical History Relation Name Comments [...] Taken Vital Sign Reading 10/13/2018 1:08 PM RUBBER STAMP DIE INSPECTOR Blood Pressure 142/94 10/13/2018 1:08 PM RUBBER STAMP DIE INSPECTOR Pulse 102 - Temperature - - Respiratory Rate - - Oxygen Saturation - - Inhaled Oxygen - Concentration 10/13/2018 1:08 PM RUBBER STAMP DIE INSPECTOR Weight 126 kg (278 lb 8 oz) 10/13/2018 1:08 PM RUBBER STAMP DIE INSPECTOR Height 190.5 cm (6' 3") 10/13/2018 1:08 PM RUBBER STAMP DIE INSPECTOR Body Mass Index 34.81 Plan of Treatment Care Team Description Date Type Specialty Walter Canela MD [address] [facility] [phone] 04/06/2019 Office Visit Neurology Health Maintenance Due Date Last Done Comments COLON CANCER SCREENING 2003 SHINGLES VACCINES (#1) 2003 65+ PNEUMOCOCCAL VACCINE 2018 (1 of 2 - PCV13) PNEUMOCOCCAL 2018 POLYSACCHARIDE VACCINE AGE 65 AND OVER INFLUENZA VACCINE 04/19/2019 Procedures Comments Procedure Name Priority Date/Time Associated Diagnosis VITAMIN B12 AND FOLATE Routine 10/14/2018 8:51 AM RUBBER STAMP DIE INSPECTOR THYROID STIMULATING Routine 10/14/2018 HORMONE 8:51 AM RUBBER STAMP DIE INSPECTOR T4, FREE Routine 10/14/2018 8:51 AM RUBBER STAMP DIE INSPECTOR SSA/SSB ANTIBODY Routine 10/14/2018 8:51 AM RUBBER STAMP DIE INSPECTOR KKAPPA/LAMBDA LIGHT Routine 10/14/2018 CHAINS, FREE WITH RATIO 8:51 AM RUBBER STAMP DIE INSPECTOR AND REFLEX TO IMMUNOFIXAT CRYOGLOBULIN SCREEN WITH Routine 10/14/2018 REFLEX TO CRYOGLOBULIN 8:51 AM RUBBER STAMP DIE INSPECTOR PROFILE METHYLMALONIC ACID, SERUM Routine 10/14/2018 8:51 AM RUBBER STAMP DIE INSPECTOR INTERPRETATION (REFLEX Routine 10/14/2018 [facility]) 8:51 AM RUBBER STAMP DIE INSPECTOR RQEZ RNA POLYMERASE III Routine 10/14/2018 (NOT ORDERABLE) 8:51 AM RUBBER STAMP DIE INSPECTOR CENTROMERE B ANTIBODY Routine 10/14/2018 (NOT ORDERABLE) 8:51 AM RUBBER STAMP DIE INSPECTOR SCL-70 ANTIBODY Routine 10/14/2018 8:51 AM RUBBER STAMP DIE INSPECTOR ANTINUCLEAR ANTIBODIES Routine 10/14/2018 TITER AND PATTERN 8:51 AM RUBBER STAMP DIE INSPECTOR HUSSEIN SCREEN, IFA (NOT Routine 10/14/2018 ORDERABLE) 8:51 AM RUBBER STAMP DIE INSPECTOR SERUM ELECTROPHORESIS Routine 10/14/2018 8:51 AM RUBBER STAMP DIE INSPECTOR after 01/01/2018 Results * RQEZ RNA POLYMERASE III (NOT ORDERABLE) (10/14/2018 8:51 AM RUBBER STAMP DIE INSPECTOR) RNA polymerase III TNP Units [facility] Comment: [facility]NOST[facility]/CHEN Test Not Performed. Reflex SJC testing not required. Narrative Performed At FASTING:NO [facility] FASTING: NO Resulting Agency Comment Performing Organization Information: Site ID: [id number] Name: [facility], Address: [address] [place] [phone] Director: Nicole Richmond MD,PhD,PILLO Performing Organization Address [facility] Phone Number [facility] [employer] [id number] [place] [address] [facility] [phone] * Cryoglobulin Screen with Reflex to Cryoglobulin Profile (10/14/2018 8:51 AM RUBBER STAMP DIE INSPECTOR) Cryoglobulin NEGATIVE [facility] Comment: [employer] [facility] Reference Range: NEGATIVE IN NORMAL INDIVIDUAL S This test was developed and its analytical performance characteristics have been determined by [facility]. It has not been cleared or approved by FDA. This assay has been validated pursuant to the CLIA regulations and is used for clinical purposes. Narrative Performed At FASTING:NO [facility] FASTING: NO Resulting Agency Comment Performing Organization Information: Site ID: [id number] Name: [facility], Address: [address] [place] [phone] Director: Nicole Richmond MD,PhD,PILLO Performing Organization Address [facility] Phone Number [employer] [phone] [place] [address] [facility] [phone] * INTERPRETATION (REFLEX [facility]) (10/14/2018 8:51 AM RUBBER STAMP DIE INSPECTOR) Interpretation SEE NOTE [facility] Comment: [employer] HUSSEIN by IFA on HEp-2 cell [facility] substrate was negative for nuclear and cytoplasmic [...] sclerosis and/or interstitial lung disease, for example, PM-Ddx105, PM-Scl75, CENP A, CENP B, RNA Polymerase III subunit RP11, RNA Polymerase III subunit RP155, U1-snRNP CORPORATE JOB TITLES A, U1-snRNP CORPORATE JOB TITLES C, U1-snRNP CORPORATE JOB TITLES 70kd, U3-snRNP (fibrillarin), Th/To, and/or Scl-70 antibodies. Narrative Performed At FASTING:NO [facility] FASTING: NO Resulting Agency Comment Performing Organization Information: Site ID: [id number] Name: [facility], Address: [address] [place] [phone] Director: Nicole Richmond MD,PhD,PILLO Performing Organization Address [facility] Phone Number [facility] [address] [place] [address] [facility] [phone] * CENTROMERE B ANTIBODY (10/14/2018 8:51 AM RUBBER STAMP DIE INSPECTOR) Centromere antibody TNP AI [facility] Comment: DIAGNOST[facility]/CHEN Test Not Performed. Reflex SJC testing not required. Narrative Performed At FASTING:NO [facility] FASTING: NO Resulting Agency Comment Performing Organization Information: Site ID: [id number] Name: [facility], Address: [address] [place] [phone] Director: Nicole Richmond MD,PhD,PILLO Performing Organization Address [facility] Phone Number [facility] [address] [place] [address] [facility] [phone] * Scl-70 antibody (10/14/2018 8:51 AM RUBBER STAMP DIE INSPECTOR) Scleroderma SCL-70 Ab TNP AI [facility] Comment: DIAGNOSTICS/CHEN Test Not Performed. Reflex SJC testing not required. Narrative Performed At FASTING:NO [facility] FASTING: NO Resulting Agency Comment Performing Organization Information: Site ID: [id number] Name: [facility], Address: [address] [place] [phone] Director: Nicole Richmond MD,PhD,PILLO Performing Organization Address [facility] [[email or web address] Phone Number [employer] [address] [place] [address] [facility] [phone] * HUSSEIN SCREEN, IFA (10/14/2018 8:51 AM RUBBER STAMP DIE INSPECTOR) HUSSEIN screen NEGATIVE NEGATIVE [employer] Comment: [employer] HUSSEIN IFA is a first line screen [facility] for detecting the presence of up to approximately 150 autoantibodies in various autoimmune diseases. A negative HUSSEIN IFA result suggests HUSSEIN-associated autoimmune diseases are not present at this time. Visit Physician FAQs for interpretation of all antibodies in the Jones, prevalence, and association with diseases at http://education.[employer]/faq/NWO281 Narrative Performed At FASTING:NO [facility] FASTING: NO Resulting Agency Comment Performing Organization Information: Site ID: [id number] Name: [facility], Address: [address] [place] [phone] Director: Nicole Richmond MD,PhD,PILLO Performing Organization Address City/State/Zipcode Phone Number [facility] [facility] [address] [place] [address] [facility] [phone] * [place]/Lambda Light Chains, Free with Ratio and Reflex to Immunofixation (10/14/2018 8:51 AM RUBBER STAMP DIE INSPECTOR) [place] light chain 26.2 (H) 3.3 - 19.4 mg/L [facility] II Lambda light chain 21.3 5.7 - 26.3 mg/L [facility] II [place] lambda ratio 1.23 0.26 - 1.65 [facility] [...] Performing Organization Information: Site ID: [id number] Name: [facility] Address: [address] [place] [phone] Director: Dr. Walter Gorman Performing Organization Address [facility] [[email or web address] Phone Number [facility] [address] [place] [address] II * Vitamin B12 and Folate (10/14/2018 8:51 AM RUBBER STAMP DIE INSPECTOR) Vitamin B12 598 200 - 1,100 pg/mL [employer] [place] Folate 14.2 ng/mL [employer] Comment: [place] Reference Range Low: <3.4 Borderline:3.4-5.4 Normal:>5.4 Narrative Performed At FASTING:NO [facility] FASTING: NO Resulting Agency Comment Performing Organization Information: Site ID: RGA Name: [facility] Address: [address] [place] [phone] Director: More Del Cid Performing Organization Address [facility] Phone Number [facility] [facility] [place] [address] [place] [address] * ANTINUCLEAR ANTIBODIES TITER AND PATTERN (10/14/2018 8:51 AM RUBBER STAMP DIE INSPECTOR) HUSSEIN pattern TNP [facility] Comment: DIAGNOSTICS/CHEN Test Not Performed. Reflex SJC testing not required. Reference Ranges for Anti-Nuclear Ab Titer: <1:40Negative 1:40-1:80Low Antibody Level >1:80Elevated Antibody Level Test Not Performed. Reflex testing not required. Narrative Performed At FASTING:NO [facility] FASTING: NO Resulting Agency Comment Performing Organization Information: Site ID: [id number] Name: [facility], Address: [address] [place] [phone] Director: Nicole Richmond MD,PhD,PILLO Performing Organization Address [facility] [[email or web address] Phone Number [employer] [address] [place] [address] [facility] [address] * SSA/SSB antibody (10/14/2018 8:51 AM RUBBER STAMP DIE INSPECTOR) Sjogren's SS-A antibody <1.0 NEG <1.0 NEG AI [employer] II Sjogren's SS-B antibody <1.0 NEG <1.0 NEG AI [employer] II Narrative Performed At FASTING:NO [facility] FASTING: NO Resulting Agency Comment Performing Organization Information: Site ID: [id number] Name: [facility] Address: [address] [place] [address] Director: Dr. Walter Gorman Performing Organization Address City/[facility] [[email or web address] Phone Number [facility] [address] [facility] [place] [address] II * Methylmalonic acid, serum (10/14/2018 8:51 AM RUBBER STAMP DIE INSPECTOR) Methylmalonic acid 108 87 - 318 nmol/L [facility] Comment: [employer] This test was developed and [facility] its analytical performance characteristics have been determined by [facility]. It has not been cleared or approved by FDA. This assay has been validated pursuant to the CLIA regulations and is used for clinical purposes. Narrative Performed At FASTING:NO [facility] FASTING: NO Resulting Agency Comment Performing Organization Information: Site ID: EZ Name: [facility], Address: [address] [place] [phone] Director: Nicole Richmond MD,PhD,PILLO Performing Organization Address [facility] [[email or web address] Phone Number [employer] [address] [place] [address] [facility] [phone] * Thyroid stimulating hormone (10/14/2018 8:51 AM RUBBER STAMP DIE INSPECTOR) TSH 3.61 0.40 - 4.50 mIU/L [employer] [place] Narrative Performed At FASTING:NO [facility] FASTING: NO Resulting Agency Comment Performing Organization Information: Site ID: RGA Name: [facility] Address: [address] [place] [phone] Director: More Del Cid Performing Organization Address [facility] [[email or web address] Phone Number [facility] [address] [address] * T4, free (10/14/2018 8:51 AM RUBBER STAMP DIE INSPECTOR) T4, free 1.4 0.8 - 1.8 ng/dL [employer] [place] Narrative Performed At FASTING:NO [facility] FASTING: NO Resulting Agency Comment Performing Organization Information: Site ID: RGA Name: [facility] Address: [address] [place] [address] Director: More Del Cid Performing Organization Address City/[facility] [[email or web address] Phone Number [facility] [facility] [place] [address] [place] [address] * Serum electrophoresis (10/14/2018 8:51 AM RUBBER STAMP DIE INSPECTOR) Protein 7.2 6.1 - 8.1 g/dL [facility] Albumin, S 4.7 3.8 - 4.8 g/dL [facility] II Ehfba-1-fszrxzfz 0.3 0.2 - 0.3 g/dL [facility] II Ywzjb-6-yydyvega 0.6 0.5 - 0.9 g/dL [facility] II Beta-1 globulin 0.4 0.4 - 0.6 g/dL [facility] II Beta-2 globulin 0.3 0.2 - 0.5 g/dL [facility] II Gamma, CSF 0.9 0.8 - 1.7 g/dL [facility] II Interpretation Comment: [facility] Normal Electrophoretic Pattern [facility]AGNOSTICS-[place] II Narrative Performed At FASTING:NO [facility] FASTING: NO Resulting Agency Comment Performing Organization Information: Site ID: IG Name: [facility] Address: [address] [place] [address] Director: Dr. Walter Gorman Performing Organization Address City/[facility] [[email or web address] Phone Number [facility] [address] [place] [address] II after 01/01/2018 Insurance Payer Benefit Subscriber ID Type Phone Address Plan / Group COUNT INCLUDES THE [facility] xxxxxxxx [facility] Advance Directives Patient has advance care planning documents on file. For more information, maría elena wilson contact: Armen Valencia [address] [place] [address]
[2019-01-02 08:20] VITALS: BP 128/94
--- NOTE | 2019-01-05 17:36 | Operative Report ---
DATE OF PROCEDURE: 01/02/2019 SURGEON: Cuong Braden MD PREOPERATIVE DIAGNOSIS: Left kidney stone. POSTOPERATIVE DIAGNOSIS: Left kidney stone. PROCEDURES: Staged shockwave lithotripsy left side. ANESTHESIA: General. ESTIMATED BLOOD LOSS: Minimal. COMPLICATIONS: None. INDICATIONS FOR PROCEDURE: Mr. Milligan is a 63-year-old male with a history of bilateral kidney stones. He and I had a long discussion regarding alternatives, risks and benefits and he elected to proceed with shock wave lithotripsy, ureteroscopy, percutaneous surgery, open surgery. He voiced understanding of the options, the alternatives, the risks and the benefits and he elected to proceed. PROCEDURE IN DETAIL: After informed consent was obtained, the patient was taken to the operative suite. He was placed supine on the operating table. Stone was localized in the X, Y and Z planes. Treatment was performed per the treatment report. The patient tolerated the procedure well, was transported to recovery room in excellent condition with no untoward effects noted. Cuong Braden MD ES/MODL /[id number]
== END | disposition home or self-care (01) ==
LOC: OR 05:12
PROVIDERS: ATTEND Urology
DX: N20.0 Calculus of kidney (principal); N39.0 Urinary tract infection, site not specified; N28.1 Cyst of kidney, acquired; T19.1XXA Foreign body in bladder, initial encounter; N40.1 Benign prostatic hyperplasia with lower urinary tract symptoms; N13.8 Other obstructive and reflux uropathy; G71.00 Muscular dystrophy, unspecified; I10 Essential (primary) hypertension; X58.XXXA Exposure to other specified factors, initial encounter; Z01.812 Encounter for preprocedural laboratory examination; Z79.82 Long term (current) use of aspirin; Z68.35 Body mass index [BMI] 35.0-35.9, adult
CPT/HCPCS: 36415; 50590; 74018; 85025; J0696; J1100; J2001; J2250; J2405; J2704

== ENCOUNTER → 2019-01-31 | Outpatient (CLI) | payer OTHER ==
[~2019-01-31] MED LIST changes: -CEFTRIAXONE SOD 1 GM/NS 50 ML 50 ML IV ONE; -DEXAMETHASONE SOD PHOS INJ 4 MG/ML VIAL ONE; -FENTANYL CITRATE/PF 100MCG/2 ML INJ ONE; -LIDOCAINE HCL 2% LOCAL INJ 5 ML SDV VIAL INJ ONE; -MIDAZOLAM HCL 2 MG/2 ML VIAL ONE; -ONDANSETRON HCL INJ 2MG/ML 2ML 2 MG/ML VIAL ONE; -PROPOFOL IV EMULSION 10 MG/ML 20 ML VIAL ONE; -SEVOFLURANE INHAL SOLN 250 ML PEN BTL ONE
--- NOTE | 2019-01-31 16:27 | Diagnostic Imaging Report ---
Abdomen, 2 views. History: Stones. Findings: The intestinal gas pattern is nonobstructive. There no masses. There is a 7 mm stone overlying the lower pole of the left kidney. The osseous structures reveal degenerative spurring of the spine. IMPRESSION: Left lower pole renal stone. Signed by: Dr. Juan J Henry DO on 01/31/2019 4:23 PM
== END ==
LOC: RAD 12:12
PROVIDERS: ATTEND Urology
DX: N20.0 Calculus of kidney (principal)
CPT/HCPCS: 74018

== ENCOUNTER → 2019-06-08 | Day surgery (SDC) | payer MEDICARE ==
[2019-06-05 14:38] LABS: BASOPHILS # (AUTO) 0.1 (0.0-0.1); BASOPHILS % 1.2 % (0.0-1.0); EOSINOPHILS # (AUTO) 0.5 (0.0-0.4); EOSINOPHILS % 7.1 % (0.0-6.0); HEMATOCRIT 43.1 % (38.2-49.6); HEMOGLOBIN 14.3 g/dL (14.0-18.0); LYMPHOCYTES # (AUTO) 1.8 (1.0-3.2); LYMPHOCYTES % 24.7 % (18.0-39.1); MEAN CORPUSCULAR HEMOGLOBIN 29.3 pg (28-32); MEAN CORPUSCULAR HGB CONC 33.2 g/dL (31-35); MEAN CORPUSCULAR VOLUME 88.3 fL (81-99); MONOCYTES # (AUTO) 0.5 (0.2-0.8); MONOCYTES % 6.6 % (4.4-11.3); NEUTROPHILS # (AUTO) 4.4 (2.1-6.9); PLATELET COUNT 283 x10e3/uL (140-360); RED BLOOD COUNT 4.88 x10e6/uL (4.3-5.7); RED CELL DISTRIBUTION WIDTH 13.2 % (11.7-14.4)
[~2019-06-08] MED LIST changes: +CEFTRIAXONE SOD 1 GM/NS 50 ML 50 ML IV ONE; +FENTANYL CITRATE/PF 100MCG/2 ML INJ ONE; +GLYCOPYRROLATE INJ 1MG/ 5 ML SYR ONE; +LIDOCAINE HCL 2% LOCAL INJ 5 ML SDV VIAL INJ ONE; +MIDAZOLAM HCL 2 MG/2 ML VIAL ONE; +ONDANSETRON HCL INJ 2MG/ML 2ML 2 MG/ML VIAL ONE; +PROPOFOL IV EMULSION 10 MG/ML 20 ML VIAL ONE
--- OUTSIDE RECORDS SUMMARY | 2019-06-08 06:11 | XMS REPORT | Clinical Summary ---
Author Author [facility] Organization [facility] Address Unknown Phone Unavailable Care Team Providers Care Blender Conveyor Operator Name Role Phone Christa Todd MD [...] mg by 0 mouth daily. 9 Active methylphenidate HCl Take 10 mg by [...] 0 MG capsule mouth daily. 9 Active telmisartan (MICARDIS) 40 Take 40 mg by 0 MG tablet mouth daily. 9 Active PRALUENT PEN 75 mg/mL pen 0 injector subcutaneous 9 injection Active aspirin-calcium carbonate Take by 0 81 mg-300 mg calcium(777 mouth. 5 mg) tablet Active VASCEPA 1 gram capsule 0 9 Active modafinil (PROVIGIL) 200 Take by 0 MG tablet mouth. 9 Active sildenafil (VIAGRA) 50 MG Take by 0 tablet mouth. 04/06/2019 Discontinued (Med List Cleanup) gemfibrozil (LOPID) 600 Take 600 mg 0 MG tablet by mouth 9 daily. 04/06/2019 Discontinued (Med List Cleanup) pravastatin (PRAVACHOL) Take 40 mg by 1 40 MG tablet mouth daily. 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 At high risk for falls 04/06/2019 Encounters Care Team Description Date Type Specialty Walter Canela MD 04/19/2019 Telephone Neurology Shruti Canela RN 04/13/2019 Telephone Neurology Marianela Mercado MD 04/13/2019 Telephone Neurology Walter Canela MD 04/11/2019 Telephone Neurology Walter Canela MD Paramyotonia congenita (Primary Dx); Idiopathic neuropathy; Dyspnea and respiratory abnormalities; At high risk for falls; essential tremor; Chronic gout of multiple sites, unspecified cause; Essential tremor 04/06/2019 Office Visit Neurology Marianela Mercado MD 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 Orders Only Neurology Marianela Mercado MD Idiopathic progressive neuropathy 10/23/2018 Telephone Neurology Marianela Mercado MD 10/16/2018 Telephone Neurology Marianela Mercado MD 10/14/2018 Orders Only Neurology Marianela Mercado MD Paramyotonia congenita (Primary Dx); Idiopathic progressive neuropathy; At high risk for falls 10/13/2018 Office Visit Neurology Marianela Mercado MD 10/06/2018 Telephone Neurology Marianela Mercado MD 10/05/2018 Telephone Neurology after 06/07/2018 Family History Medical History Relation Name Comments Other Daughter Paramyotonia congentia Other Daughter Paramyotonia congentia Other Grandchild Paramyotonia congentia Breast cancer Mother Heart attack Mother Other Son Paramyotonia congentia Relation Name Status Comments Daughter Daughter Grandchild Mother Son Social History Date Tobacco Use Types Packs/Day Years Used Never Smoker Smokeless Tobacco: Never Used Drinks/Week oz/Week Comments Alcohol Use No Alcohol Habits Answer Date Recorded How [...] travel history available. Last Filed Vital Signs Reading Time Taken Comments Vital Sign 128/84 04/06/2019 1:22 PM CDT Blood Pressure 106 04/06/2019 1:22 PM CDT Pulse - - Temperature - - Respiratory Rate - - Oxygen Saturation - - Inhaled Oxygen Concentration 124 kg (272 lb 11.2 oz) 04/06/2019 1:22 PM CDT Weight 190.5 cm (6' 3") 04/06/2019 1:22 PM CDT Height 34.09 04/06/2019 1:22 PM CDT Body Mass Index Plan of Treatment Care Team Description Date Type Specialty Vera Bishop MD [address] [address] 10/05/2019 Office Visit Neurology Health Maintenance Due Date Last Done Comments COLONOSCOPY SCREENING 2003 SHINGLES VACCINES (#1) 2003 65+ PNEUMOCOCCAL VACCINE 2018 11/25/2016 (2 of 2 - PPSV23) INFLUENZA VACCINE 04/19/2019 06/22/2011, 06/28/2009 Procedures Comments Procedure Name Priority Date/Time Associated Diagnosis VITAMIN B12 AND FOLATE Routine 10/14/2018 8:51 AM DIAL EQUIPMENT ENGINEER THYROID STIMULATING Routine 10/14/2018 HORMONE 8:51 AM DIAL EQUIPMENT ENGINEER T4, FREE Routine 10/14/2018 8:51 AM DIAL EQUIPMENT ENGINEER SSA/SSB ANTIBODY Routine 10/14/2018 8:51 AM DIAL EQUIPMENT ENGINEER KKAPPA/LAMBDA LIGHT Routine 10/14/2018 CHAINS, FREE WITH RATIO 8:51 AM DIAL EQUIPMENT ENGINEER AND REFLEX TO IMMUNOFIXAT CRYOGLOBULIN SCREEN WITH Routine 10/14/2018 REFLEX TO CRYOGLOBULIN 8:51 AM DIAL EQUIPMENT ENGINEER PROFILE METHYLMALONIC ACID, SERUM Routine 10/14/2018 8:51 AM DIAL EQUIPMENT ENGINEER INTERPRETATION (REFLEX Routine 10/14/2018 [facility]) 8:51 AM DIAL EQUIPMENT ENGINEER RQEZ RNA POLYMERASE III Routine 10/14/2018 (NOT ORDERABLE) 8:51 AM DIAL EQUIPMENT ENGINEER CENTROMERE B ANTIBODY Routine 10/14/2018 (NOT ORDERABLE) 8:51 AM DIAL EQUIPMENT ENGINEER SCL-70 ANTIBODY Routine 10/14/2018 8:51 AM DIAL EQUIPMENT ENGINEER ANTINUCLEAR ANTIBODIES Routine 10/14/2018 TITER AND PATTERN 8:51 AM DIAL EQUIPMENT ENGINEER HUSSEIN SCREEN, IFA (NOT Routine 10/14/2018 ORDERABLE) 8:51 AM DIAL EQUIPMENT ENGINEER SERUM ELECTROPHORESIS Routine 10/14/2018 8:51 AM DIAL EQUIPMENT ENGINEER after 06/07/2018 Results * RQEZ RNA POLYMERASE III (NOT ORDERABLE) (10/14/2018 8:51 AM DIAL EQUIPMENT ENGINEER) RNA polymerase TNP Units [facility] III Comment: DIAGNOSTICS/[facility]NEY Test Not Performed. Reflex [facility] testing not required. Specimen Narrative Performed At FASTING:NO [facility] FASTING: NO Resulting Agency Comment Performing Organization Information: Site ID: [id number] Name: [facility], Address: [address] [place] [phone] Director: Nicole Richmond MD,PhD,PILLO Performing Organization Address City/State/Zipcode Phone Number MATIAS ARIAS/KAEDN [address] [place] [address] [facility] [id number] * Cryoglobulin Screen with Reflex to Cryoglobulin Profile (10/14/2018 8:51 AM DIAL EQUIPMENT ENGINEER) Cryoglobulin NEGATIVE [facility] Comment: DIAGNOSTICS/[facility] Reference Range: NEGATIVE IN NORMAL INDIVIDUAL S This test was developed and its analytical performance characteristics have been determined by [facility]. It has not been cleared or approved by FDA. This assay has been validated pursuant to the CLIA regulations and is used for clinical purposes. Specimen Narrative Performed At FASTING:NO [facility] FASTING: NO Resulting Agency Comment Performing Organization Information: Site ID: [id number] Name: [facility], Address: [address] [place] [phone] Director: Nicole Richmond MD,PhD,PILLO Performing Organization Address City/State/Zipcode Phone Number Dr. Z/[facility] [address] [place] [address] [facility] [id number] * INTERPRETATION (REFLEX [facility]) (10/14/2018 8:51 AM DIAL EQUIPMENT ENGINEER) Interpretation SEE NOTE [facility] Comment: DIAGNOSTICS/RODNEY HUSSEIN by IFA on HEp-2 cell [facility] substrate was negative for nuclear and cytoplasmic autoantibodies. About 5% or more of systemic sclerosis patients have a negative HUSSEIN IFA (Lul. Arthritis Res Ther 2003;5:80-93; Orozco et al. Kaykay Arthritis Rheum 2015;44:680-686). If clinical suspicion for systemic sclerosis and/or systemic sclerosis overlap syndromes remains, consider testing for analyte specific autoantibodies known to be associated with systemic sclerosis and/or interstitial lung disease, for example, PM-Lzh116, PM-Scl75, CENP A, CENP B, RNA Polymerase III subunit RP11, RNA Polymerase III subunit RP155, U1-snRNP CLAIMS AUDITOR A, U1-snRNP CLAIMS AUDITOR C, U1-snRNP CLAIMS AUDITOR 70kd, U3-snRNP (fibrillarin), Th/To, and/or Scl-70 antibodies. Specimen Narrative Performed At FASTING:NO [facility] FASTING: NO Resulting Agency Comment Performing Organization Information: Site ID: [id number] Name: [facility], Address: [address] [place] [phone] Director: Nicole Richmond MD,PhD,PILLO Performing Organization Address [facility] Phone Number [facility]/[place] [address] [place] [address] [facility] [phone] * CENTROMERE B ANTIBODY (10/14/2018 8:51 AM DIAL EQUIPMENT ENGINEER) Pathologist [facility] Centromere TNP AI [facility] antibody Comment: DIAGNOSTICS/RODNEY Test Not Performed. Reflex [facility] testing not required. Specimen Narrative Performed At FASTING:NO [facility] FASTING: NO Resulting Agency Comment Performing Organization Information: Site ID: [id number] Name: [facility], Address: [address] [place] [phone] Director: Nicole Richmond MD,PhD,PILLO Performing Organization Address [facility] Phone Number [facility] [address] [place] [address] [facility] [phone] * Scl-70 antibody (10/14/2018 8:51 AM DIAL EQUIPMENT ENGINEER) Pathologist [facility] Scleroderma TNP AI [facility] SCL-70 Ab Comment: DIAGNOSTICS/RODNEY Test Not Performed. Reflex [facility] testing not required. Specimen Narrative Performed At FASTING:NO [facility] FASTING: NO Resulting Agency Comment Performing Organization Information: Site ID: [id number] Name: [facility], Address: [address] [place] [phone] Director: Nicole Richmond MD,PhD,PILLO Performing Organization Address [facility] Phone Number [facility] [address] [place] [address] [facility] [phone] * HUSSEIN SCREEN, IFA (10/14/2018 8:51 AM DIAL EQUIPMENT ENGINEER) Pathologist [facility] HUSSEIN screen NEGATIVE NEGATIVE [facility] Comment: DIAGNOSTICS/RODNEY HUSSEIN IFA is a first line screen [facility] for detecting the presence of up to approximately 150 autoantibodies in various autoimmune diseases. A negative HUSSEIN IFA result suggests HUSSEIN-associated autoimmune diseases are not present at this time. Visit Physician FAQs for interpretation of all antibodies in the [place], prevalence, and association with diseases at http://education.[employer].com/faq/VHY337 Specimen Narrative Performed At FASTING:NO [facility] FASTING: NO Resulting Agency Comment Performing Organization Information: Site ID: [id number] Name: [facility], Address: [id number] [place] [phone] Director: Nicole Richmond MD,PhD,PILLO Performing Organization Address City/State/Zipcode Phone Number MATIAS ARIAS/KADEN [phone] [place] [address] [facility] [phone] * [place]/Lambda Light Chains, Free with Ratio and Reflex to Immunofixation (10/14/2018 8:51 AM DIAL EQUIPMENT ENGINEER) [place] light 26.2 (H) 3.3 - 19.4 mg/L [facility] chain DIAGNOSTICS-[facility] ING II L[place] light 21.3 5.7 - 26.3 mg/L [facility] chain DIAGNOSTICS-[facility] ING II [place] lambda 1.23 0.26 - 1.65 [facility] ratio Comment: DIAGNOSTICS-[facility] Free kappa/lambda ratio in ING II serum of normal individuals is 0.26-1.65. [...] following response to therapy of these disorders. Specimen Narrative Performed At FASTING:NO [facility] FASTING: NO Resulting Agency Comment Performing Organization Information: Site ID: [id number] Name: [facility] Address: [address] [place] [address] Director: Dr. Walter Gorman Performing Organization Address City/[facility]/Zipcode Phone Number [facility] [address] [place] [address] II * Vitamin B12 and Folate (10/14/2018 8:51 AM DIAL EQUIPMENT ENGINEER) Vitamin B12 598 200 - 1,100 pg/mL [facility] Folate 14.2 ng/mL [facility] Comment: [facility] Reference Range Low: <3.4 Borderline:3.4-5.4 Normal:>5.4 Specimen Narrative Performed At FASTING:NO [facility] FASTING: NO Resulting Agency Comment Performing Organization Information: Site ID: [id number] Name: [facility] Address: [address] [place] [address] Director: More Del Cid Performing Organization Address [facility] Centercode Phone Number MATIAS [facility] [address] [address] * ANTINUCLEAR ANTIBODIES TITER AND PATTERN (10/14/2018 8:51 AM DIAL EQUIPMENT ENGINEER) HUSSEIN pattern TNP [facility] Comment: DIAGNOSTICS/RODNEY Test Not Performed. Reflex [facility] testing not required. Reference Ranges for Anti-Nuclear Ab Titer: <1:40Negative 1:40-1:80Low Antibody Level >1:80Elevated Antibody Level Test Not Performed. Reflex testing not required. Specimen Narrative Performed At FASTING:NO [facility] FASTING: NO Resulting Agency Comment Performing Organization Information: Site ID: [id number] Name: [facility], Address: [address] [place] [phone] Director: Nicole Richmond MD,PhD,PILLO Performing Organization Address [facility] Centercooh Phone Number [facility] [phone] [facility] [phone] * SSA/SSB antibody (10/14/2018 8:51 AM DIAL EQUIPMENT ENGINEER) Sjogren's SS-A <1.0 NEG <1.0 NEG AI [facility] antibody DIAGNOSTICS-[facility]IMO ING II Sjogren's SS-B <1.0 NEG <1.0 NEG AI [facility] antibody DIAGNOSTICS-[facility] ING II Specimen Narrative Performed At FASTING:NO [facility] FASTING: NO Resulting Agency Comment Performing Organization Information: Site ID: [id number] Name: [facility] Address: [address] [place] [phone] Director: Dr. Walter Gorman Performing Organization Address [facility] Centercode Phone Number Dr. [place]NAT[place]IE [place] [phone] [place] [address] II * Methylmalonic acid, serum (10/14/2018 8:51 AM DIAL EQUIPMENT ENGINEER) Methylmalonic 108 87 - 318 nmol/L [facility] acid Comment: DIAGNOSTICS/RODNEY This test was developed and [facility] its analytical performance characteristics have been determined by [facility]. It has not been cleared or approved by FDA. This assay has been validated pursuant to the CLIA regulations and is used for clinical purposes. Specimen Narrative Performed At FASTING:NO [facility] FASTING: NO Resulting Agency Comment Performing Organization Information: Site ID: [id number] Name: [facility], Address: [address] [place] [phone] Director: Nicole Richmond MD,PhD,PILLO Performing Organization Address City/[facility] Centercode Phone Number [facility]/[address] [phone] [facility] [phone] * Thyroid stimulating hormone (10/14/2018 8:51 AM DIAL EQUIPMENT ENGINEER) TSH 3.61 0.40 - 4.50 mIU/L [facility] [place] Specimen Narrative Performed At FASTING:NO [facility] FASTING: NO Resulting Agency Comment Performing Organization Information: Site ID: [id number] Name: [facility] Address: [address] [place] [phone] Director: More Del Cid Performing Organization Address [facility] Centercode Phone Number Dr. Z [address] [address] * T4, free (10/14/2018 8:51 AM DIAL EQUIPMENT ENGINEER) T4, free 1.4 0.8 - 1.8 ng/dL [facility] [place] Specimen Narrative Performed At FASTING:NO [facility] FASTING: NO Resulting Agency Comment Performing Organization Information: Site ID: [id number] Name: [facility] Address: [address] [place] [phone] Director: More Del Cid Performing Organization Address [facility] Centercode Phone Number Dr. Z [place] [phone] * Serum electrophoresis (10/14/2018 8:51 AM DIAL EQUIPMENT ENGINEER) Protein 7.2 6.1 - 8.1 g/dL [facility] DIAGNOSTICS-[facility] ING II Albumin, S 4.7 3.8 - 4.8 g/dL [facility] ING II Ojbsx-1-cirgpvy 0.3 0.2 - 0.3 g/dL [facility] n [facility] ING II Ppojr-9-rkjivqa 0.6 0.5 - 0.9 g/dL [facility] n [facility]NO[facility]ICS[facility] ING II Beta-1 globulin 0.4 0.4 - 0.6 g/dL [facility] ING II Beta-2 globulin 0.3 0.2 - 0.5 g/dL [facility] ING II Gamma, CSF 0.9 0.8 - 1.7 g/dL [facility]G II Interpretation Comment: [facility] Normal Electrophoretic Pattern DIAGNOSTICS-[facility] ING II Specimen Narrative Performed At FASTING:NO [facility] FASTING: NO Resulting Agency Comment Performing Organization Information: Site ID: [id number] Name: [facility] Address: [address] [place] [phone] Director: Dr. Walter Gorman Performing Organization Address City/State/Zipcode Phone Number [facility] [address] [place] [address] II after 06/07/2018 Insurance Type Payer Benefit Subscriber ID Effective Phone Address Plan / Dates Group [facility] xxxxxxxx 2018-Francisco simpson Advance Directives For more information, please contact: [phone] Patient Social Director Explanation Type Date Recorded Advance Directives, Living Will and Medical Power of Import Customer Service Manager
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
[2019-06-08 09:20] VITALS: BP 116/72
--- NOTE | 2019-06-08 16:28 | Operative Report ---
DATE OF PROCEDURE: 06/08/2019 SURGEON: Cuong Braden MD PREOPERATIVE DIAGNOSIS: Left kidney stone. POSTOPERATIVE DIAGNOSIS: Left kidney stone. PROCEDURES PERFORMED: 1. Staged shock wave lithotripsy, left side. 2. Supervision of fluoroscopy. ANESTHESIA: General. ESTIMATED BLOOD LOSS: Minimal. COMPLICATIONS: None. INDICATIONS: Mr. Milligan is a very pleasant 64-year-old chronic stone former. I had a long discussion about alternatives, risks, and benefits of doing nothing, shock wave lithotripsy, ureteroscopy, percutaneous surgery or open surgery. He voiced understanding of the options, alternatives, risks, and benefits and elected to proceed. DESCRIPTION OF PROCEDURE: After informed consent was obtained, the patient was taken to the operative suite, placed supine on the table, underwent general anesthesia by Anesthesia Service. A 5 mm stone was localized in the X, Y and Z planes. Treatment was performed per treatment report. The patient tolerated the procedure well and was transferred to the recovery room in excellent condition. Supervision of fluoroscopy: I was present for the entire procedure and supervised fluoroscopy. There was no radiologist present. Dosage per treatment report. Cuong Braden MD ES/MODL /[id number]
== END | disposition home or self-care (01) ==
LOC: OR 05:12
PROVIDERS: ATTEND Urology
DX: N20.0 Calculus of kidney (principal); I10 Essential (primary) hypertension; Z01.810 Encounter for preprocedural cardiovascular examination; Z01.812 Encounter for preprocedural laboratory examination; Z79.82 Long term (current) use of aspirin
CPT/HCPCS: 36415; 50590; 85025; 93005; J0696; J2001; J2250; J2405; J2704; J3010; J3490

== ENCOUNTER → 2021-12-04 | Day surgery (SDC) | payer MEDICARE ==
[2021-12-02 12:22] LABS: BASOPHILS # (AUTO) 0.1 (0.0-0.1); BASOPHILS % 1.4 % (0.0-1.0); EOSINOPHILS # (AUTO) 0.4 (0.0-0.4); EOSINOPHILS % 5.9 % (0.0-6.0); HEMATOCRIT 42.3 % (38.2-49.6); HEMOGLOBIN 14.1 g/dL (14.0-18.0); LYMPHOCYTES # (AUTO) 1.8 (1.0-3.2); LYMPHOCYTES % 25.3 % (18.0-39.1); MEAN CORPUSCULAR HEMOGLOBIN 29.6 pg (28-32); MEAN CORPUSCULAR HGB CONC 33.3 g/dL (31-35); MEAN CORPUSCULAR VOLUME 88.7 fL (81-99); MONOCYTES # (AUTO) 0.6 (0.2-0.8); MONOCYTES % 8.1 % (4.4-11.3); NEUTROPHILS # (AUTO) 4.2 (2.1-6.9); NEUTROPHILS % 58.9 % (38.7-80.0); PLATELET COUNT 321 x10e3/uL (140-360); RED BLOOD COUNT 4.77 x10e6/uL (4.3-5.7); RED CELL DISTRIBUTION WIDTH 13.3 % (11.7-14.4)
[~2021-12-04] MED LIST changes: +CEFTRIAXONE 1 GM VIAL ONE; -CEFTRIAXONE SOD 1 GM/NS 50 ML 50 ML IV ONE; +DEXAMETHASONE SOD PHOS INJ 4 MG/ML SDV ONE; +GLYCOPYRROLATE INJ 0.2 MG/ML VIAL ONE; -GLYCOPYRROLATE INJ 1MG/ 5 ML SYR ONE; +POVIDONE IODINE 0.05% 0.05 % ML PO ONE
[2021-12-04 08:30] VITALS: BP 116/83
== END | disposition home or self-care (01) ==
LOC: OR 05:57
PROVIDERS: ATTEND Urology
DX: N20.0 Calculus of kidney (principal); I49.3 Ventricular premature depolarization; G71.19 Other specified myotonic disorders; I10 Essential (primary) hypertension; I25.2 Old myocardial infarction; I25.10 Atherosclerotic heart disease of native coronary artery without angina pectoris; K44.9 Diaphragmatic hernia without obstruction or gangrene; K21.9 Gastro-esophageal reflux disease without esophagitis; Z88.8 Allergy status to other drugs, medicaments and biological substances; Z01.810 Encounter for preprocedural cardiovascular examination; Z01.812 Encounter for preprocedural laboratory examination; Z01.818 Encounter for other preprocedural examination; Z20.822 Contact with and (suspected) exposure to COVID-19; Z79.82 Long term (current) use of aspirin; Z95.5 Presence of coronary angioplasty implant and graft
CPT/HCPCS: 36415; 50590; 71046; 74018; 85025; 93005; J0696; J1100; J2001; J2250; J2405; J2704; J3010; U0002